=== PATIENT | female | born 1965 | race Caucasian/White ===

== ENCOUNTER 2020-07-08 15:13 | Outpatient (CLI) | payer OTHER, SELFPAY ==
--- NOTE | 2020-07-08 15:21 | MM_ITS ---
WS: [id number] BILATERAL SCREENING DIGITAL MAMMOGRAM WITH CAD HISTORY: SCREENING COMPARISON: 04/07/2019 and 10/11/2015 Bilateral CC and MLO views submitted. Computer aided detection analyzed. Breast composition: There are scattered areas of fibroglandular density. No suspicious masses, microc alcifications or architectural distortion. MM/[place] [id number] IMPRESSION: BI-RADS: 1-Negative FOLLOW UP: 1 Year Follow-up
== END 2020-07-08 15:14 | disposition home or self-care (01) ==
LOC: RADSHAW 15:19
PROVIDERS: PCP Internal Medicine; Visit Provider Obstetrics & Gynecology
DX: Z12.31 Encounter for screening mammogram for malignant neoplasm of breast (principal)
CPT/HCPCS: 77067

== ENCOUNTER 2022-01-19 12:06 | Outpatient (CLI) | payer OTHER, SELFPAY ==
[2022-01-19 13:32] LABS: Calcium 10.7 mg/dL (8.5-10.5)
[2022-01-19 13:56] LABS: Parathyroid Hormone 114.8 pg/mL (15-65)
== END 2022-01-19 12:07 | disposition home or self-care (01) ==
PROVIDERS: PCP Internal Medicine; Visit Provider Internal Medicine
DX: E21.0 Primary hyperparathyroidism (principal); R79.89 Other specified abnormal findings of blood chemistry
CPT/HCPCS: 80048; 82306; 82310; 83970

== ENCOUNTER 2022-02-19 10:08 | Outpatient (CLI) | payer OTHER, SELFPAY ==
--- NOTE | 2022-02-19 10:29 | XR_ITS ---
WS: [id number] Exam: XR ankle LT min 3V* [id number] Date/Time of Exam: 02/19/2022 10:54 AM Reason For Exam: ANKLE JOINT PAIN, LEFT No acute fracture or dislocation. The ankle mortise is intact. Lateral soft tissue swelling. XR/XR ankle LT min 3V* [id number] IMPRESSION: 1. Lateral soft tissue swelling-no acute fracture.
== END 2022-02-19 10:09 | disposition home or self-care (01) ==
PROVIDERS: PCP Internal Medicine; Visit Provider Clinical Nurse Specialist Adult Health
DX: M25.572 Pain in left ankle and joints of left foot (principal)
CPT/HCPCS: 73610

== ENCOUNTER 2022-04-10 15:29 | Outpatient (CLI) | payer OTHER, SELFPAY ==
--- NOTE | 2022-04-10 15:30 | XR_ITS ---
WS: [id number] SCREENING DEXA SCAN [employer] CLINICAL INFORMATION: Check bone density COMPARISON: None. FINDINGS: The L1-L4 bone mineral density measures 0.948 g/cm2. This corresponds to a T score score of -1.9 and Z score of -1.1. Left femoral neck bone mineral density measures 0.832 g/cm2. This corresponds to a T score of -1.4 an d Z score of -0.7. Right femoral neck bone mineral density measures 0.715 g/cm2. This corresponds to a T score -2.3of an d Z score of -1.7. Mean femoral neck bone mineral density measures 0.773 g/cm2. This corresponds to a T score of -1.9 an d Z score of -1.2. XR/XR DEXA axial skeleton* [id number] IMPRESSION: Osteopenia in the femoral necks and lumbar spine. Patient's FRAX calculated 10 year probability for major osteoporotic fracture i s 12.4 % and osteoporotic hip fracture is 2.9%.
[2022-04-10 17:54] LABS: Thyroid Stimulating Hormone 4.29 uIU/mL (0.27-4.20)
[2022-04-10 18:44] LABS: Calcium 10.5 mg/dL (8.5-10.5); Parathyroid Hormone 100.3 pg/mL (15-65)
== END 2022-04-10 15:36 | disposition home or self-care (01) ==
LOC: RAD 15:38 → LAB 15:41 → RAD 15:46
PROVIDERS: PCP Internal Medicine; Visit Provider Internal Medicine
DX: E03.9 Hypothyroidism, unspecified (principal); E21.0 Primary hyperparathyroidism; K59.00 Constipation, unspecified; R79.89 Other specified abnormal findings of blood chemistry; M85.80 Other specified disorders of bone density and structure, unspecified site
CPT/HCPCS: 36415; 77080; 82310; 83970; 84439; 84443

== ENCOUNTER 2022-06-05 11:49 | Outpatient (CLI) | payer OTHER, SELFPAY ==
[2022-06-05 13:09] LABS: Calcium 10.8 mg/dL (8.5-10.5)
[2022-06-05 13:14] LABS: Parathyroid Hormone 110.1 pg/mL (15-65)
[2022-06-05 13:15] LABS: Alanine Aminotransferase 12 U/L (0-33); Albumin Level 4.3 g/dL (3.5-5.2); Alkaline Phosphatase 130 U/L (35-105); Anion Gap 14.2 (5-19); Aspartate Amino Transferase 14 U/L (0-32); Blood Urea Nitrogen 11 mg/dL (6-20); Calcium 10.4 mg/dL (8.5-10.5); Carbon Dioxide 25 mmol/L (22-29); Chloride 104 mmol/L (98-107); Free T4 Free Thyroxine 1.32 ng/dL (0.82-1.77); Globulin 2.8 g/dL (1.3-4.6); Glomerular Filtration Rate 56.7 mL/min (90-130); Glucose 90 mg/dL (65-115); Osmolality Calculated 287 mOsm/kg (285-295); Potassium 4.2 mmol/L (3.5-5.1); Sodium 139 mmol/L (136-145); Thyroid Stimulating Hormone 3.21 uIU/mL (0.27-4.20); Total Bilirubin 0.3 mg/dL (0.15-1.2); Total Protein 7.1 g/dL (6.6-8.7)
[2022-06-05 13:45] LABS: 25 Hydroxy Vitamin D 23 ng/mL (30-100)
== END 2022-06-05 11:50 | disposition home or self-care (01) ==
PROVIDERS: Internal Medicine; PCP Family Medicine; Visit Provider Podiatrist Foot & Ankle Surgery
DX: E21.0 Primary hyperparathyroidism (principal); E03.9 Hypothyroidism, unspecified; R79.89 Other specified abnormal findings of blood chemistry; B35.1 Tinea unguium
CPT/HCPCS: 80053; 82306; 82310; 83970; 84439; 84443

== ENCOUNTER 2022-10-22 14:48 | Observation (INO) | payer OTHER, SELFPAY ==
[2022-10-22 14:58] VITALS: BP 139/76; PULSE 81; RESP 16; TEMP 36.7; O2SAT 99
[2022-10-22 17:20] LABS: Basophils # 0.1 10^3/uL (0.0-0.1); Basophils % 0.7 %; Eosinophils # 0.2 10^3/uL (0.0-0.8); Eosinophils % 2.4 %; Hematocrit 43.7 % (37.0-47.0); Hemoglobin 14.7 g/dL (11.5-15.3); Lymphocytes # 2.5 10^3/uL (0.8-4.8); Lymphocytes % 33.1 %; Mean Corpuscular HGB Conc 33.6 g/dL (30.0-36.0); Mean Corpuscular Hemoglobin 31.1 pg (28.0-34.0); Mean Corpuscular Volume 92.4 fl (81-99); Mean Platelet Volume 11.6 fL (7.4-10.4); Monocytes # 0.6 10^3/uL (0.2-0.9); Monocytes % 8.3 %; Neutrophils # 4.16 10^3/uL (1.8-7.7); Neutrophils % 55.4 %; Nucleated Red Blood Cells % 0 %; Platelet Count 262 10^3/cmm (130-400); Red Blood Count 4.73 10^6/uL (4.1-5.3); Red Cell Distribution Width 11.6 % (12.1-15.1); White Blood Count 7.5 10^3/uL (4.0-10.0)
[2022-10-22 17:42] LABS: Alanine Aminotransferase 11 U/L (0-33); Albumin Level 4.8 g/dL (3.5-5.2); Alkaline Phosphatase 131 U/L (35-105); Anion Gap 14.8 (5-19); Aspartate Amino Transferase 14 U/L (0-32); Blood Urea Nitrogen 20 mg/dL (6-20); Calcium 11.7 mg/dL (8.5-10.5); Carbon Dioxide 27 mmol/L (22-29); Chloride 102 mmol/L (98-107); Globulin 2.7 g/dL (1.3-4.6); Glomerular Filtration Rate 73.4 mL/min (90-130); Glucose 95 mg/dL (65-115); Osmolality Calculated 290 mOsm/kg (285-295); Potassium 4.8 mmol/L (3.5-5.1); Sodium 139 mmol/L (136-145); Total Bilirubin 0.4 mg/dL (0.15-1.2); Total Protein 7.5 g/dL (6.6-8.7)
--- NOTE | 2022-10-22 19:12 | W.ED.WEAKNES ---
HPI - Weakness General: Chief complaint: Weakness Stated complaint: possible syncope Time Seen by Provider: 10/22/22 17:24 History of Present Illness: Ms. Resendez is a 57-year-old lady with history of thyroid disorder presenting to the emergency department for abnormal neurologic events. She describes approximately 1 month of very rare intermittent short-lived episodes where she feels sudden onset of generalized weakness and unsteadiness. These do not correlate with any particular event, time of day, things that she can think of. Over the past few days she has had multiple episodes that have lasted longer. She describes being aware but unable to see and move. Intensity symptoms when present is moderate to severe. Currently feels mild fatigue and malaise which is common after her events. No other specific changes in health, exacerbating, or alleviating factors identified. Onset (ago): week(s) Duration: intermittent Migration: none Severity: severe Quality: other Relieving factors: none Exacerbating factors: none Review of Systems General: Reports: 10 or more systems reviewed and unremarkable except in HPI and below PFSH ED PFSH: Medical History History of ganglion cyst Hypothyroid Right-sided lacunar infarction Surgical History H/O: hysterectomy History of carpal tunnel surgery History of laparoscopic cholecystectomy Family History Grandfather Heart disease maternal Father Hypercholesteremia Mother Hypertension Social History Smoking and tobacco status: never smoked Alcohol intake: never History of recent travel: No Physical Exam Const: COMMON NORMALS: patient oriented x3 and alert GENERAL APPEARANCE: cooperative and well developed HENMT: COMMON NORMALS: normocephalic and atraumatic HEAD & SCALP: normocephalic and atraumatic THROAT: posterior oropharynx normal Eye: COMMON NORMALS: conjunctivae normal CONJUNCTIVA: Yes conjunctivae normal SCLERA: sclerae normal Neck/C-Spine: COMMON NORMALS: supple GENERAL: Yes trachea midline Resp: COMMON NORMALS: clear to auscultation bilaterally EFFORT & INSPECTION: Yes able to speak in complete sentences AUSCULTATION: clear to auscultation bilaterally Cardio: COMMON NORMALS: regular rate and regular rhythm RATE: regular rate RHYTHM: regular rhythm GI: COMMON NORMALS: Soft to palpation PALPATION: Yes Soft to palpation and No Tenderness to palpation present (GI) Extremity: GENERAL: Yes normal exam except as noted and No edema Neuro: COMMON NORMALS: patient oriented x3, CN's II-XII intact bilaterally, moves all extremities, no focal motor deficits, no sensory deficits noted and gait normal SENSORIUM/ORIENTATION: Yes alert and No Orientation impaired Psych: COMMON NORMALS: mental status grossly normal and Normal thought process present THOUGHT PROCESS: Normal thought process present Course Vital Signs: Vital signs: Vital Signs Temperature 98.3 F 10/23/22 11:52 Pulse Rate 75 10/23/22 11:52 Respiratory Rate 18 10/23/22 11:52 Blood Pressure 120/76 10/23/22 11:52 Pulse Oximetry 98 10/23/22 11:52 Oxygen Delivery Me thod 10/23/22 00:57 MDM - Weakness Medical Decision Making 57-year-old lady presenting with abnormal neurologic episodes that have been increasing in frequency. No focal neurologic deficits appreciated on clinical exam. EKG demonstrates sinus rhythm with left axis deviation, normal intervals, no STEMI. Similar on repeat. No significant hematologic or metabolic abnormalities to explain symptoms. Negative range 2-hour delta troponin. No convincing evidence of UTI in the absence of symptoms. Chest x-ray with no lobar consolidation or pneumothorax. Head CT negative for acute intracranial hemorrhage or mass, old CVA present which patient was not aware of. The patient did have another episode however upon my observation patient does have completed. There is no shaking/seizure characteristic. Etiology is unclear. Most likely etiology of patient symptoms is unclear transient neurologic episodes concerning for syncope versus TIA. The results of ED evaluation were discussed with the patient including plan for admission due to requirement for level of care not available if discharged to prevent significant worsening/deterioration. Patient agreeable with plan. Discussed with hospitalist service who was agreeable to admit patient. Medical Records I reviewed the patient's medical records. Lab Data I reviewed the patient's lab results. 10/22/22 17:02 10/22/22 17:02 Radiology Impressions Chest X-Ray 10/22/22 19:20 IMPRESSION: No acute findings. Head CT 10/22/22 19:20 IMPRESSION: 1. Negative for intracranial hemorrhage or mass effect. 2. Right external capsule chronic lacunar infarct. Laboratory Results WBC 7.5 10^3/uL (4.0-10.0) 10/22/22 17:02 RBC 4.73 10^6/uL (4.1-5.3) 10/22/22 17:02 Hgb 14.7 g/dL (11.5-15.3) 10/22/22 17:02 Hct 43.7 % (37.0-47.0) 10/22/22 17:02 MCV 92.4 fl (81-99) 10/22/22 17:02 MCH 31.1 pg (28.0-34.0) 10/22/22 17:02 MCHC 33.6 g/dL (30.0-36.0) 10/22/22 17:02 RDW 11.6 % (12.1-15.1) L 10/22/22 17:02 Plt Count 262 10^3/cmm (130-400) 10/22/22 17:02 MPV 11.6 fL (7.4-10.4) H 10/22/22 17:02 Neut % (Auto) 55.4 % 10/22/22 17:02 Lymph % (Auto) 33.1 % 10/22/22 17:02 [place] % (Auto) 8.3 % 10/22/22 17:02 Eos % (Auto) 2.4 % 10/22/22 17:02 Baso % (Auto) 0.7 % 10/22/22 17:02 Neut # (Auto) 4.16 10^3/uL (1.8-7.7) 10/22/22 17:02 Lymph # (Auto) 2.5 10^3/uL (0.8-4.8) 10/22/22 17:02 [place] # (Auto) 0.6 10^3/uL (0.2-0.9) 10/22/22 17:02 Eos # (Auto) 0.2 10^3/uL (0.0-0.8) 10/22/22 17:02 Baso # (Auto) 0.1 10^3/uL (0.0-0.1) 10/22/22 17:02 Nucleated RBC % (auto) 0 % 10/22/22 17:02 Nucleated RBCs # 0.0 /100WBC 10/22/22 17:02 Sodium 139 mmol/L (136-145) 10/22/22 17:02 Potassium 4.8 mmol/L (3.5-5.1) 10/22/22 17:02 Chloride 102 mmol/L (98-107) 10/22/22 17:02 Carbon Dioxide 27 mmol/L (22-29) 10/22/22 17:02 Anion Gap 14.8 (5-19) 10/22/22 17:02 BUN 20 mg/dL (6-20) 10/22/22 17:02 Creatinine 0.8 mg/dL (0.5-0.9) 10/22/22 17:02 GFR Calculation 73.4 mL/min (90-130) L 10/22/22 17:02 Glucose 95 mg/dL (65-115) 10/22/22 17:02 Calculated Osmolality 290 mOsm/kg (285-295) 10/22/22 17:02 Calcium 11.7 mg/dL (8.5-10.5) H 10/22/22 17:02 Total Bilirubin 0.4 mg/dL (0.15-1.2) 10/22/22 17:02 AST 14 U/L (0-32) 10/22/22 17:02 ALT 11 U/L (0-33) 10/22/22 17:02 Alkaline Phosphatase 131 U/L (35-105) H 10/22/22 17:02 Troponin T Baseline 6 ng/L (0-10) 10/22/22 17:06 Troponin T 120 Minute 6.00 ng/L (0-10) 10/22/22 21:07 Delta Troponin T 0 ABS# (0-10) 10/22/22 21:07 Total Protein 7.5 g/dL (6.6-8.7) 10/22/22 17:02 Albumin 4.8 g/dL (3.5-5.2) 10/22/22 17:02 Globulin 2.7 g/dL (1.3-4.6) 10/22/22 17:02 TSH 5.31 uIU/mL (0.27-4.20) H 10/22/22 17:06 Free T4 1.25 ng/dL (0.82-1.77) 10/22/22 17:06 Urine Color Yellow (Yellow) 10/22/22 20:00 Urine Appearance Clear (CLEAR) 10/22/22 20:00 Urine pH 7 (5-7) 10/22/22 20:00 Ur Specific [place] 1.015 (1.005-1.030) 10/22/22 20:00 Urine Protein Neg (Negative) 10/22/22 20:00 Urine Glucose (UA) Norm (Normal) 10/22/22 20:00 Urine Ketones Negative (Negative) 10/22/22 20:00 Urine Blood Neg (Negative) 10/22/22 20:00 Urine Nitrate Negative (Negative) 10/22/22 20:00 Urine Bilirubin Neg (Negative) 10/22/22 20:00 Urine Urobilinogen Norm mg/dL (Negative) 10/22/22 20:00 Ur Leukocyte Esterase Trace (Negative) H 10/22/22 20:00 Urine RBC 0-4 /hpf (0-2) H 10/22/22 20:00 Urine WBC 5-10 /hpf (0-5) H 10/22/22 20:00 Ur Squamous Epith Cells 0-4 /hpf (0-5) H 10/22/22 20:00 Amorphous Sediment Not Reportable 10/22/22 20:00 Urine Bacteria Trace /hpf (NONE) 10/22/22 20:00 Discharge Plan Discharge Patient Disposition: Placed in Observation Admit Provider: Lynda Mancera Clinical Impression: Transient neurological symptoms, Syncope Discharge Diet: Regular Discharge Activity: Resume usual activity and Increase activity as tolerated Coding Level of Care Code ED Nonprofit Financial Controller for Chg Orlin
--- NOTE | 2022-10-22 19:20 | XRR_ITS ---
PROCEDURE INFORMATION: Exam: XR Chest Exam date and time: 10/22/2022 7:43 PM Age: 57 years old Clinical indication: Other: Leg weakness, feeling of syncope often; Additional info: Transient neurologic episodes, TECHNIQUE: Imaging protocol: Radiologic exam of the chest. Views: 1 view. COMPARISON: CT neck w con* [id number] 11/04/2015 3:03 PM FINDINGS: Lungs: Unremarkable. No consolidation. Pleural spaces: Unremarkable. No pleural effusion. No pneumothorax. Heart/Mediastinum: Unremarkable. No cardiomegaly. Bones/joints: Unremarkable. XR/XR chest 1V portable [id number] IMPRESSION: No acute findings.
--- NOTE | 2022-10-22 19:20 | ECG_ITS ---
[facility] Test Date: 2022-10-22 Pat Name: Violet Resendez Department: Room: Gender: Female Grape Cutter: : 1965 Requested By: Edward Franco Order Number: [id number] Yolanda MD: Nena Chadwick M.D. Measurements Intervals [place] Rate: 71 P: -21 NE: 167 QRS: -17 QRSD: 86 T: 27 QT: 379 QTc: 414 Interpretive Statements SINUS RHYTHM LOW QRS VOLTAGE IN PRECORDIAL LEADS [QRS DEFLECTION < 1.0 mV IN CHEST LEADS] POSSIBLE ANTERIOR MYOCARDIAL INFARCTION , PROBABLY OLD [30 ms Q WAVE IN V3/V4, OR R < 0.2 mV IN V4] INFERIOR MYOCARDIAL INFARCTION , PROBABLY OLD [40+ ms Q WAVE AND/OR ST/T ABNORMALITY IN II/aVF] No previous ECG available for comparison Electronically Signed On 10-23-2022 7:54:17 SORTER UPHOLSTERY PARTS by Nena Chadwick M.D. [id number]
--- NOTE | 2022-10-22 19:20 | CTR_ITS ---
PROCEDURE INFORMATION: Exam: CT Head Without Contrast Exam date and time: 10/22/2022 8:06 PM Age: 57 years old Clinical indication: Altered mental status/memory loss; Patient HX: Patient states she has been having transient short lived episodes where she cannot speak or move and then feels very weak afterwards. ; Additional info: Transient neurological events TECHNIQUE: Imaging protocol: Computed tomography of the head without contrast. Radiation optimization: All CT scans at this facility use at least one of these dose optimization techniques: automated exposure control; mA and/or kV adjustment per patient size (includes targeted exams where dose is matched to clinical indication); or iterative reconstruction. Other protocol: This patient has received 0 known CTs and 0 known cardiac nuclear medicine studies in the 12 months prior to the current study. COMPARISON: CT neck w con* [id number] 11/04/2015 3:03 PM RADIATION DOSE METRICS: Total DLP (mGy-cm): 1050.38 FINDINGS: Brain: Right external capsule chronic lacunar infarct. Cerebral ventricles: No ventriculomegaly. Paranasal sinuses: Visualized sinuses are unremarkable. No fluid levels. Mastoid air cells: Visualized mastoid air cells are well aerated. Bones/joints: Unremarkable. No acute fracture. Soft tissues: Unremarkable. CT/CT head wo con* [id number] IMPRESSION: 1. Negative for intracranial hemorrhage or mass effect. 2. Right external capsule chronic lacunar infarct.
[2022-10-22 19:45] LABS: Troponin(5th) Baseline 6 ng/L (0-10)
[2022-10-22 19:54] LABS: Thyroid Stimulating Hormone 5.31 uIU/mL (0.27-4.20)
[2022-10-22 20:02] VITALS: BP 128/77; BP 133/64; BP 133/77; PULSE 74; PULSE 84; PULSE 85
[2022-10-22 20:46] LABS: Free T4 Free Thyroxine 1.25 ng/dL (0.82-1.77)
[2022-10-22] MEDS: sodium chloride 0.9% 1,000 ML 999 ML IV (20:48)
[2022-10-22 20:55] LABS: Add Urine Culture? No; Add Urine Microscopic? YES; Bacteria Urine TRACE /hpf; Bilirubin Urine Neg (Negative); Blood Urine Neg (Negative); Glucose Urine UA Norm (Normal); Ketones Urine Negative (Negative); Leukocyte Esterase Urine Trace (Negative); Nitrate Urine Negative (Negative); Protein Urine Neg (Negative); RBC Urine 0-4 /hpf (0-2); Specific Gravity, Urine 1.015 (1.005-1.030); Squamous Epithelial Cell Urine 0-4 /hpf (0-5); Urine Appearance Clear (CLEAR); Urine Color Yellow (Yellow); Urobilinogen Urine Norm (Negative); pH Urine 7 (5-7)
--- NOTE | 2022-10-22 21:25 | ECG_ITS ---
[facility] Test Date: 2022-10-22 Pat Name: Violet Resendez Department: Room: Gender: Female Process Development Engineer: : 1965 Requested By: Edward Franco Order Number: [id number] Guerrero MD: Nena Chadwick M.D. Measurements Intervals [place] Rate: 73 P: 32 [place]: 180 QRS: 4 QRSD: 80 T: 36 QT: 389 QTc: 431 Interpretive Statements SINUS RHYTHM WITH OCCASIONAL VENTRICULAR PREMATURE COMPLEXES LOW QRS VOLTAGE IN PRECORDIAL LEADS [QRS DEFLECTION < 1.0 mV IN CHEST LEADS] Compared to ECG 10/22/2022 19:36:17 Ventricular premature complex(es) now present Myocardial infarct finding no longer present Electronically Signed On 10-23-2022 8:12:27 SCANNER SUPERVISOR by Nena Chadwick M.D. [id number]
[2022-10-22 21:41] LABS: Troponin 5 2HR Delta 0 ABS# (0-10)
[2022-10-22 22:22] VITALS: BP 126/78; PULSE 72; RESP 18; O2SAT 99
[2022-10-23 01:04] LABS: Troponin 5 6HR Delta 0 ng/L (0-12)
--- NOTE | 2022-10-23 01:20 | ECG_ITS ---
[facility] Test Date: 2022-10-23 Pat Name: Violet Resendez Department: Room: 279 Gender: Female Clerical Manager: : 1965 Requested By: Edward Franco Order Number: [id number] Yolanda MD: Blair Craven M.D. Measurements Intervals [place] Rate: 72 P: -13 VT: 179 QRS: 11 QRSD: 84 T: 44 QT: 379 QTc: 416 Interpretive Statements SINUS RHYTHM LOW QRS VOLTAGE IN PRECORDIAL LEADS [QRS DEFLECTION < 1.0 mV IN CHEST LEADS] Compared to ECG 10/22/2022 21:25:06 Ventricular premature complex(es) no longer present Electronically Signed On 10-23-2022 16:21:45 RADIOGRAPHIC TECHNOLOGIST by Blair Craven M.D. [id number]
--- NOTE | 2022-10-23 03:51 | P.HP_ITS ---
Providers/Chief Complaint Admitting Physician: Lynda Mancera MD Primary Care Provider: Nabil Goldstein MD Chief Complaint: possible syncope History of Present Illness Violet Resendez is a 57 year old female with a past medical history of hypothyroidism, hyperparathyroidism for which she follows with endocrinology as outpatient. She presents to the emergency room today with 1 month episodes of absence . She thinks she is having seizures. Describes these episodes to be suddenly going blank. Patient states that she is aware of her surroundings, able to hear conversations, able to comprehend what other people are talking about but unable to answer appropriately. She is aware of people touching her but cannot respond appropriately. Has not lost consciousness during these e pisodes. no history of head trauma prior to onset of the symptoms. No recent medications that have been added to her regimen. No past history of seizures. No fever or chills. Over the past 2 days these episodes have become more frequent, happening 2-3 times a day which concerned her to bring her to the emergency room. She has had no focal motor deficits with any of these episodes. Denies any recent stressors in life. Review of Systems General: Reports: 10 or more systems reviewed and unremarkable except in HPI and below Const: Denies: fever(s), chills or body aches Eyes: Denies: change in vision, blurry vision or photophobia ENMT: Reports: hoarseness; Denies: throat pain, enlarged tonsils, odynophagia or nasal congestion Card: Denies: chest pain, palpitations, irregular heart rhythm, edema, swelling of feet/ankles, lightheadedness, pre-syncope, dyspnea on exertion or orthopnea Resp: Denies: dyspnea, productive cough, non-productive cough, wheezing, stridor, pain on inspiration, change in phlegm color, hemoptysis or chest congestion GI: Denies: abdominal pain, nausea, vomiting, hematemesis, coffee ground emesis, dysphagia, heartburn, diarrhea, constipation, GI cramping, change in stool character, hematochezia or melena : Denies: flank pain, difficulty voiding, dysuria, urinary frequency, urinary urgency, urinary hesitancy or hematuria Musc: Denies: neck pain, back pain, extremity pain, joint swelling, joint warmth or deformity Neuro: Denies: headache(s), numbness in extremities, weakness in extremities, sensory changes, difficulty walking, frequent falls, dizziness, vertigo, behavioral changes, Slurred speech present or seizure-like activity Psych: Denies: anxiety, depression, suicidal ideation or homicidal ideation Endo: Denies: polyuria, polydipsia, tired all the time, cold intolerance or hot flashes Randal/Lymph: Denies: easy bruising or easy bleeding Medications/Allergies Home Medications Medication Instructions Recorded Confirmed Last Taken Type lansoprazole 15 mg capsule,delayed 15 mg PO DAILY 01/19/22 06/09/22 Unknown History release sucralfate 1 gram tablet 1 g PO BID PRN 01/19/22 06/09/22 Unknown History venlafaxine 37.5 mg 37.5 mg PO DAILY 01/19/22 06/09/22 Unknown History capsule,extended release 24 hr levothyroxine 25 mcg tablet 25 mcg PO DAILY #90 tabs 01/20/22 06/09/22 Unknown Rx terbinafine HCl 250 mg tablet 250 mg PO DAILY 30 days #30 tabs 04/28/22 06/09/22 Unknown Rx ropinirole 2 mg tablet See Rx Instructions .Route 09/24/22 Unknown Rx .COMPLEX #180 tabs cholecalciferol (vitamin D3) 50 See Rx Instructions .Route 10/05/22 Unknown Rx mcg (2,000 unit) capsule .COMPLEX #100 caps Allergies Allergy/AdvReac Type Severity Reaction Status Date / Time Sulfa (Sulfonamide Allergy anaphylaxis Verified 06/09/22 14:47 Antibiotics) PFSH Acute PFSH: Medical History History of ganglion cyst Surgical History H/O: hysterectomy History of carpal tunnel surgery History of laparoscopic cholecystectomy Family History Grandfather Heart disease maternal Father Hypercholesteremia Mother Hypertension Social History Smoking and tobacco status: never smoked Alcohol intake: never History of recent travel: No Vitals/I&O/Wt Last Vital Signs Temp 98.0 F 10/22/22 14:58 Pulse 72 10/22/22 22:22 Resp 18 10/22/22 22:22 BP 126/78 10/22/22 22:22 Pulse Ox 99 10/22/22 22:22 O2 Del Method 10/23/22 00:57 10/22/22 10/22/22 10/23/22 14:59 22:59 06:59 Intake Total 1000 / 1000 Balance 1000 / 1000 Weight last 48 hrs Weight 72.575 kg Physical Exam Narrative: General: No acute distress, AO x3 HEENT: PERRLA, pupils bilaterally equal and reactive, pallors not present Chest: Normal vesicular breath sounds, no added sounds, equal good air entry bilaterally CVS: S1-S2 regular, no murmurs, no tachycardia, no gallops, no rubs Abdomen: Soft, nontender, no organomegaly, bowel sounds present Neuro: No focal deficits, no facial deformity, AO x3, power 5/5 in all limbs Data 10/22/22 17:02 10/22/22 17:02 Other Labs: Radiology Impressions Chest X-Ray 10/22/22 19:20 IMPRESSION: No acute findings. Head CT 10/22/22 19:20 IMPRESSION: 1. Negative for intracranial hemorrhage or mass effect. 2. Right external capsule chronic lacunar infarct. Laboratory Results WBC 7.5 10^3/uL (4.0-10.0) 10/22/22 17:02 RBC 4.73 10^6/uL (4.1-5.3) 10/22/22 17:02 Hgb 14.7 g/dL (11.5-15.3) 10/22/22 17:02 Hct 43.7 % (37.0-47.0) 10/22/22 17:02 MCV 92.4 fl (81-99) 10/22/22 17:02 MCH 31.1 pg (28.0-34.0) 10/22/22 17:02 MCHC 33.6 g/dL (30.0-36.0) 10/22/22 17:02 RDW 11.6 % (12.1-15.1) L 10/22/22 17:02 Plt Count 262 10^3/cmm (130-400) 10/22/22 17:02 MPV 11.6 fL (7.4-10.4) H 10/22/22 17:02 Neut % (Auto) 55.4 % 10/22/22 17:02 Lymph % (Auto) 33.1 % 10/22/22 17:02 [place] % (Auto) 8.3 % 10/22/22 17:02 Eos % (Auto) 2.4 % 10/22/22 17:02 Baso % (Auto) 0.7 % 10/22/22 17:02 Neut # (Auto) 4.16 10^3/uL (1.8-7.7) 10/22/22 17:02 Lymph # (Auto) 2.5 10^3/uL (0.8-4.8) 10/22/22 17:02 [place] # (Auto) 0.6 10^3/uL (0.2-0.9) 10/22/22 17:02 Eos # (Auto) 0.2 10^3/uL (0.0-0.8) 10/22/22 17:02 Baso # (Auto) 0.1 10^3/uL (0.0-0.1) 10/22/22 17:02 Nucleated RBC % (auto) 0 % 10/22/22 17:02 Nucleated RBCs # 0.0 /100WBC 10/22/22 17:02 Sodium 139 mmol/L (136-145) 10/22/22 17:02 Potassium 4.8 mmol/L (3.5-5.1) 10/22/22 17:02 Chloride 102 mmol/L (98-107) 10/22/22 17:02 Carbon Dioxide 27 mmol/L (22-29) 10/22/22 17:02 Anion Gap 14.8 (5-19) 10/22/22 17:02 BUN 20 mg/dL (6-20) 10/22/22 17:02 Creatinine 0.8 mg/dL (0.5-0.9) 10/22/22 17:02 GFR Calculation 73.4 mL/min (90-130) L 10/22/22 17:02 Glucose 95 mg/dL (65-115) 10/22/22 17:02 Calculated Osmolality 290 mOsm/kg (285-295) 10/22/22 17:02 Calcium 11.7 mg/dL (8.5-10.5) H 10/22/22 17:02 Total Bilirubin 0.4 mg/dL (0.15-1.2) 10/22/22 17:02 AST 14 U/L (0-32) 10/22/22 17:02 ALT 11 U/L (0-33) 10/22/22 17:02 Alkaline Phosphatase 131 U/L (35-105) H 10/22/22 17:02 Troponin T Baseline 6 ng/L (0-10) 10/22/22 17:06 Troponin T 120 Minute 6.00 ng/L (0-10) 10/22/22 21:07 Delta Troponin T 0 ABS# (0-10) 10/22/22 21:07 Troponin T Hi Sens 6Hr 6.00 ng/L (0-10) 10/23/22 00:30 Troponin T Hi Sens 6Hr Delta 0 ng/L (0-12) 10/23/22 00:30 Total Protein 7.5 g/dL (6.6-8.7) 10/22/22 17:02 Albumin 4.8 g/dL (3.5-5.2) 10/22/22 17:02 Globulin 2.7 g/dL (1.3-4.6) 10/22/22 17:02 TSH 5.31 uIU/mL (0.27-4.20) H 10/22/22 17:06 Free T4 1.25 ng/dL (0.82-1.77) 10/22/22 17:06 Urine Color Yellow (Yellow) 10/22/22 20:00 Urine Appearance Clear (CLEAR) 10/22/22 20:00 Urine pH 7 (5-7) 10/22/22 20:00 Ur Specific [place] 1.015 (1.005-1.030) 10/22/22 20:00 Urine Protein Neg (Negative) 10/22/22 20:00 Urine Glucose (UA) Norm (Normal) 10/22/22 20:00 Urine Ketones Negative (Negative) 10/22/22 20:00 Urine Blood Neg (Negative) 10/22/22 20:00 Urine Nitrate Negative (Negative) 10/22/22 20:00 Urine Bilirubin Neg (Negative) 10/22/22 20:00 Urine Urobilinogen Norm mg/dL (Negative) 10/22/22 20:00 Ur Leukocyte Esterase Trace (Negative) H 10/22/22 20:00 Urine RBC 0-4 /hpf (0-2) H 10/22/22 20:00 Urine WBC 5-10 /hpf (0-5) H 10/22/22 20:00 Ur Squamous Epith Cells 0-4 /hpf (0-5) H 10/22/22 20:00 Amorphous Sediment Not Reportable 10/22/22 20:00 Urine Bacteria Trace /hpf (NONE) 10/22/22 20:00 A&P Assessment and plan (1) Transient neurological symptoms: Patient presents today with increasing frequency of episodes of absence over the past month, more frequent over the past 2 to 3 days. Overall unclear etiology of symptoms at this present time. CT of the head shows right chronic lacunar infarct, though do not feel this would necessarily explain her symptoms. Denies any headache or aura at this time, unlikely to be migraine episodes. Unlikely that patient has new onset absence seizures for the first time at age 57. Ideally diagnosis of absence seizure would require continuous EEG monitoring including at the time of this episode, however this is not currently available at the facility. We will proceed with a spot EEG today if neurology is available, however normal EEG outside of the episode would not necessarily exclude the seizure episode. Electrolytes grossly normal except for mild hypercalcemia which is related to k nown hyperparathyroidism. Started on normal saline for this, however mild elevation in calcium is unlikely to explain her current neurological symptoms. no other concerning symptoms for meningitis Check orthostatics Telemetry monitoring in case related to underlying arrhythmias carotid duplex given presence of lacunar infarct on CT, unknown chronicnity, patient denies past h/o known strokes. Attestations Medical Necessity Statement*: less than 2 midnight stay anticipated for above care Coding Level of Care Code Acute Code for Chg Fwd Moderate MDM includes number and complexity of problems actively addressed during encounter as documented Diagnoses Transient neurological symptoms R29.818
[2022-10-23 04:00] VITALS: BP 99/66; PULSE 73; RESP 17; TEMP 36.4; O2SAT 97
[2022-10-23] MEDS: sodium chloride 0.9% 1,000 ML 75 ML IV (05:09)
--- NOTE | 2022-10-23 06:28 | USCV_ITS ---
Violet Resendez Age: 57 Gender: F : 1965 Exam Date: 10/23/2022 08:30 Ordering Phys: Lynda Mancera MD Technologist: SAGAR Exam Location: [facility] – [place] Indication: cva Risk Factors: Previous Vascular Surgery: Right Brachial BP: / Left Brachial BP: / Right Left Velocity (cm/s) Spectral Plaque Velocity (cm/s) Spectral Plaque Syst/Diast Broadening Syst/Diast Broadening 113.60/17.60 Prox CCA 119.60/ 19.70 118.00/19.80 Mid CCA 94.70 / 23.70 88.20/ 18.70 Distal CCA 80.20 / 22.30 90.40/ 30.90 Prox ICA 86.80 / 27.60 91.50/ 33.10 Mid ICA 76.20 / 31.60 98.10/ 33.10 Distal ICA 88.10 / 35.50 104.70 ECA 131.50 0.83 ICA/CCA 0.74 Antegrade Vertebral Antegrade 44.00/ 9.90 cm/s 51.30/ 18.60 cm/s Tri Subclavian Tri CONCLUSIONS Right ICA stenosis <50%. Left ICA stenosis <50%. Normal antegrade Doppler flow noted in the right vertebral artery. Normal antegrade Doppler flow noted in the left vertebral artery. Hipolito Jarrell MD (Electronically Signed) Final Date: 23 October 2022 12:33 S
--- NOTE | 2022-10-23 07:23 | PC.NURSE ---
Bedside report give by Estephania ALFARO. Patient appears to be asleep in bed at this time.
[2022-10-23 07:26] LABS: Ionized Calcium 1.4 mmol/L (1.1-1.4)
[2022-10-23] MEDS: venlafaxine ER (24HR) 37.5 mg Capsule PO (09:39)
[2022-10-23] MEDS: levothyroxine 25 mcg Tablet PO (09:39)
--- NOTE | 2022-10-23 10:34 | PM.DCS ---
Discharge Providers Date of Admission: 10/22/22 22:28 Date of Discharge: October 23, 2022 Attending Provider at Admission: Lynda Mancera MD Attending Provider at Discharge: Adal Mcknight MD Primary Care Provider: Nabil Goldstein MD Diagnoses at Discharge Discharge Diagnosis (1) Transient neurological symptoms: Status: Acute Reason for Visit Reason for Visit: possible syncope Hospital Course Hospital Course Violet Resendez is a 57 year old female with a past medical history of hypothyroidism, hyperparathyroidism for which she follows with endocrinology as outpatient.? She presents to the emergency room today with 1 month episodes of absence .? She thinks she is having seizures.? Describes these episodes to be suddenly going blank.? Patient states that she is aware of her surroundings, able to hear conversations, able to comprehend what other people are talking about but unable to answer appropriately. She is aware of people touching her but cannot respond appropriately. Has not lost consciousness during these episodes. no history of head trauma prior to onset of the symptoms.? No recent medications that have been added to her regimen.? No past history of seizures.? No fever or chills.? Over the past 2 days these episodes have become more frequent, happening 2-3 times a day which concerned her to bring her to the emergency room.? She has had no focal motor deficits with any of these episodes.? Denies any recent stressors in life. Denies any recent changes in medications. Patient was admitted to hospital for further evaluation and management. Patient did not have any DVT events during hospitalization. All of the blood looked normal. CT head was done which ruled out any acute abnormality. It was discussed in detail with the patient that her symptomatology is less likely to be of a seizure and more likely of possible narcolepsy versus conversion disorder. It was also discussed that patient will most likely need a continuous video EEG for few days because it is prudent for her to have a EEG while she has an event which no one knows pain can happen again and most of the life-threatening conditions have been ruled out. She is to follow-up with neurology specialist in [place] and will need referral from a primary care provider. She has an appointment with a primary care provider early next week. Physical Exam Narrative: General: No acute distress, AO x3 HEENT: PERRLA, pupils bilaterally equal and reactive, pallors not present Chest: Normal vesicular breath sounds, no added sounds, equal good air entry bilaterally CVS: S1-S2 regular, no murmurs, no tachycardia, no gallops, no rubs Abdomen: Soft, nontender, no organomegaly, bowel sounds present Neuro: No focal deficits, no facial deformity, AO x3, power 5/5 in all limbs Discharge Data Studies Completed and Pending Completed Studies During Hospitalization Category Date Time Status CT head wo con* [id number] Stat Cat Scan 10/22/22 19:20 Completed XR chest 1V portable [id number] Stat Exams 10/22/22 19:20 Completed Pending at discharge Category Date Time Status EEG electroencephalogram Routine Exams 10/23/22 06:28 Ordered Comprehensive Metabolic Panel AM LABS Lab 10/24/22 04:00 Ordered CV carotid duplex BI* [id number] Routine Ultrasound 10/23/22 06:28 Taken Radiology Impressions Chest X-Ray 10/22/22 19:20 IMPRESSION: No acute findings. Head CT 10/22/22 19:20 IMPRESSION: 1. Negative for intracranial hemorrhage or mass effect. 2. Right external capsule chronic lacunar infarct. Laboratory Results WBC 7.5 10^3/uL (4.0-10.0) 10/22/22 17:02 RBC 4.73 10^6/uL (4.1-5.3) 10/22/22 17:02 Hgb 14.7 g/dL (11.5-15.3) 10/22/22 17:02 Hct 43.7 % (37.0-47.0) 10/22/22 17:02 MCV 92.4 fl (81-99) 10/22/22 17:02 MCH 31.1 pg (28.0-34.0) 10/22/22 17:02 MCHC 33.6 g/dL (30.0-36.0) 10/22/22 17:02 RDW 11.6 % (12.1-15.1) L 10/22/22 17:02 Plt Count 262 10^3/cmm (130-400) 10/22/22 17:02 MPV 11.6 fL (7.4-10.4) H 10/22/22 17:02 Neut % (Auto) 55.4 % 10/22/22 17:02 Lymph % (Auto) 33.1 % 10/22/22 17:02 [place] % (Auto) 8.3 % 10/22/22 17:02 Eos % (Auto) 2.4 % 10/22/22 17:02 Baso % (Auto) 0.7 % 10/22/22 17:02 Neut # (Auto) 4.16 10^3/uL (1.8-7.7) 10/22/22 17:02 Lymph # (Auto) 2.5 10^3/uL (0.8-4.8) 10/22/22 17:02 [place] # (Auto) 0.6 10^3/uL (0.2-0.9) 10/22/22 17:02 Eos # (Auto) 0.2 10^3/uL (0.0-0.8) 10/22/22 17:02 Baso # (Auto) 0.1 10^3/uL (0.0-0.1) 10/22/22 17:02 Nucleated RBC % (auto) 0 % 10/22/22 17:02 Nucleated RBCs # 0.0 /100WBC 10/22/22 17:02 Sodium 139 mmol/L (136-145) 10/22/22 17:02 Potassium 4.8 mmol/L (3.5-5.1) 10/22/22 17:02 Chloride 102 mmol/L (98-107) 10/22/22 17:02 Carbon Dioxide 27 mmol/L (22-29) 10/22/22 17:02 Anion Gap 14.8 (5-19) 10/22/22 17:02 BUN 20 mg/dL (6-20) 10/22/22 17:02 Creatinine 0.8 mg/dL (0.5-0.9) 10/22/22 17:02 GFR Calculation 73.4 mL/min (90-130) L 10/22/22 17:02 Glucose 95 mg/dL (65-115) 10/22/22 17:02 Calculated Osmolality 290 mOsm/kg (285-295) 10/22/22 17:02 Calcium 11.7 mg/dL (8.5-10.5) H 10/22/22 17:02 Ionized Calcium Debbie 1.4 mmol/L (1.1-1.4) 10/23/22 07:00 Total Bilirubin 0.4 mg/dL (0.15-1.2) 10/22/22 17:02 AST 14 U/L (0-32) 10/22/22 17:02 ALT 11 U/L (0-33) 10/22/22 17:02 Alkaline Phosphatase 131 U/L (35-105) H 10/22/22 17:02 Troponin T Baseline 6 ng/L (0-10) 10/22/22 17:06 Troponin T 120 Minute 6.00 ng/L (0-10) 10/22/22 21:07 Delta Troponin T 0 ABS# (0-10) 10/22/22 21:07 Troponin T Hi Sens 6Hr 6.00 ng/L (0-10) 10/23/22 00:30 Troponin T Hi Sens 6Hr Delta 0 ng/L (0-12) 10/23/22 00:30 Total Protein 7.5 g/dL (6.6-8.7) 10/22/22 17:02 Albumin 4.8 g/dL (3.5-5.2) 10/22/22 17:02 Globulin 2.7 g/dL (1.3-4.6) 10/22/22 17:02 TSH 5.31 uIU/mL (0.27-4.20) H 10/22/22 17:06 Free T4 1.25 ng/dL (0.82-1.77) 10/22/22 17:06 Urine Color Yellow (Yellow) 10/22/22 20:00 Urine Appearance Clear (CLEAR) 10/22/22 20:00 Urine pH 7 (5-7) 10/22/22 20:00 Ur Specific [place] 1.015 (1.005-1.030) 10/22/22 20:00 Urine Protein Neg (Negative) 10/22/22 20:00 Urine Glucose (UA) Norm (Normal) 10/22/22 20:00 Urine Ketones Negative (Negative) 10/22/22 20:00 Urine Blood Neg (Negative) 10/22/22 20:00 Urine Nitrate Negative (Negative) 10/22/22 20:00 Urine Bilirubin Neg (Negative) 10/22/22 20:00 Urine Urobilinogen Norm mg/dL (Negative) 10/22/22 20:00 Ur Leukocyte Esterase Trace (Negative) H 10/22/22 20:00 Urine RBC 0-4 /hpf (0-2) H 10/22/22 20:00 Urine WBC 5-10 /hpf (0-5) H 10/22/22 20:00 Ur Squamous Epith Cells 0-4 /hpf (0-5) H 10/22/22 20:00 Amorphous Sediment Not Reportable 10/22/22 20:00 Urine Bacteria Trace /hpf (NONE) 10/22/22 20:00 Vitals Last Vital Signs Temp 97.6 F 10/23/22 04:00 Pulse 73 10/23/22 04:00 Resp 17 10/23/22 04:00 BP 99/66 10/23/22 04:00 Pulse Ox 97 10/23/22 04:00 O2 Del Method 10/23/22 00:57 Discharge Plan Discharge Patient Disposition: Home Condition: Stable Prescriptions: Continued levothyroxine 25 mcg tablet 25 mcg PO DAILY Qty: 90 3RF Rx Instructions: Take one tablet by mouth daily. ropinirole 2 mg tablet See Rx Instructions .ROUTE .COMPLEX Qty: 180 2RF Dose Instruction: TAKE 1 TABLET BY MOUTH TWICE A DAY NEEDED FOR MUSCLE JERKING Rx Instructions: TAKE 1 TABLET BY MOUTH TWICE A DAY NEEDED FOR MUSCLE JERKING cholecalciferol (vitamin D3) 50 mcg (2,000 unit) capsule See Rx Instructions .ROUTE .COMPLEX Qty: 100 3RF Dose Instruction: TAKE 1 CAPSULE BY MOUTH EVERY DAY Rx Instructions: TAKE 1 CAPSULE BY MOUTH EVERY DAY Discharge Orders: Discharge Order (Routine); Ordered 10/23/22 Ordered By: Adal Mcknight Referrals: Nabil Goldstein MD [Primary Care Provider] - 10/29/22 12:30 pm Discharge Diet: Regular Discharge Activity: Resume usual activity and Increase activity as tolerated Patient Instructions: Transient Ischemic Attack (DC), Syncope (DC), Opioid Safety Activity Restrictions/Additional Instructions: You will need to follow-up with a neurologist at [place] for possible need of continuous video EEG. You will need a referral from a primary care provider regarding same. You should also be tested for sleep apnea. Please talk to your primary care provider regarding same. Discharge Attestations Time Spent in Discharge Care*: greater than 30 min Specific Discharge Activities: educating patient, discussing with pcp/other providers, discussing with case management specialist/social workers/dc planners, documenting/other paperwork and evaluating patient/reviewing data Status at Discharge: Cognitive status at discharge: cognitively intact, Behavioral status at discharge: cooperative, Functional status at discharge: independent ambulation, Overall status at discharge: patient is back to baseline Quality Metrics Clinical Quality Measures [ No reported AMI, CVA or VTE this stay] Coding Level of Care Code 76380 Diagnoses Transient neurological symptoms R29.818
[2022-10-23 10:46] VITALS: BP 120/76; PULSE 75; RESP 18; TEMP 36.8; O2SAT 98
--- NOTE | 2022-10-23 11:22 | PC.CHAP ---
Pastoral Care Encounter/Spiritual Assessment Type of Contact [] Declined supervisor industrial garment visit [] Patient/Family/Request visit [] Outpatient visit [] Follow-up visit [] Physician referral [] Code/Alert [x] Routine visit [] Staff referral [] Actively dying [] Patient sleeping [x] Family support [] [] Out of room [] Palliative care [] [] Receiving care in room [] Pre-surgical visit [] Trauma [] Long length of stay [] ICU visit [] Other: Relational/Emotional Strength [x] Patient feels connected with others/family/visitors/staff [] Distress [] Loneliness/isolation [] Abandonment Spirituality of Patient [x] Person of Mindi [] Attends Taoism of their Mindi [x] Believes in Prayer [] Reads Bible or Rastafarian materials [] There are Spiritual issues to be addressed Director Of Social Media Marketing Interventions [x] Prayer [] Active listening [] Non-anxious presence [] Spiritual/emotional support [] Crisis/trauma care [] Spiritual counseling [] Bereavement support [] Provided bereavement packet [x] Provided Bible/devotional materials [] Provided toy/stuffed animal, coloring book to patient or family member [] Provided Communion [] Anointing/Pennock [] Salvation [x] Completed spiritual assessment [] Other: Impact on Illness or Injury [] Angry [] Fearful [] Anxious [] Often cries [] Exhaustion [] Unable to work [] Unable to attend restorationist [] Unable to walk/stand [] Unable to read [] Unable to drive [] Unable to eat/drink [] Unable to sleep [] Unable to be with family [] Patient intubated [] Other: Summary Time spent with patient 10min
[2022-10-23 11:52] VITALS: BP 120/76; PULSE 75; RESP 18; TEMP 36.8; O2SAT 98
--- NOTE | 2022-10-23 11:52 | PC.NURSE ---
IV removed intact. Patient tolerated well. Patient is A&Ox3. Respirations even and non-labored on room air. Reviewed discharge instructions with patient and . Patient verbalized understanding including follow up appointments.
== END 2022-10-23 12:09 | disposition home or self-care (01) ==
LOC: ER 22:27 → MEDSURG 23:19
PROVIDERS: Nurse Practitioner Family; Admitting Provider Student in an Organized Health Care Education/Training Program; Emergency Provider Emergency Medicine; PCP Family Medicine; Visit Provider Student in an Organized Health Care Education/Training Program
DX: R29.818 Other symptoms and signs involving the nervous system (principal); E03.9 Hypothyroidism, unspecified; I65.23 Occlusion and stenosis of bilateral carotid arteries
CPT/HCPCS: 36415; 70450; 71045; 80053; 81001; 82330; 84439; 84443; 84484; 85025; 93005; 93880; 96360; 99285; G0378; J7030

== ENCOUNTER → 2023-03-01 08:44 | Outpatient (BNVA) | payer OTHER, SELFPAY | PROVIDERS: PCP Family Medicine; Referring Provider Family Medicine; Visit Provider Psychiatry & Neurology Neurology | DX: R55 Syncope and collapse (principal); R29.818 Other symptoms and signs involving the nervous system; R79.89 Other specified abnormal findings of blood chemistry; G25.81 Restless legs syndrome; E03.9 Hypothyroidism, unspecified; I63.9 Cerebral infarction, unspecified | CPT/HCPCS: 36415; 82306; 82607; 82746; 83090; 83735; 83921; 84439; 84443; 84480 ==

== ENCOUNTER 2023-03-17 07:19 | Outpatient (CLI) | payer OTHER, SELFPAY ==
--- NOTE | 2023-03-17 07:15 | MR_ITS ---
WS: [id number] MRI BRAIN WITH AND WITHOUT CONTRAST HISTORY: R55 - Syncope and collapse COMPARISON: 07/25/2008, CT head 10/22/2022 TECHNIQUE: Multiplanar imaging performed through the brain with MultiHance 16 ml's IV. No acute infarcts are seen. Cruz-white matter differentiation is well preserved. Mild small vessel is chemic type changes in the subcortical white matter, bilateral. Prominent perivascular space along th e inferior RIGHT basal ganglia. Similar to the prior study. No prior large territory infarct. No susceptibility artifacts or prior lacunar infarcts. Ventricles and extra-axial spaces are normal. Clivus and pituitary gland are normal. Visualized posterior fossa and brainstem are also normal. Very small venous angioma LEFT frontal lobe. 5 mm nodular enhancement along the posterior supraventri cular interhemispheric falx. Differential includes a tiny meningioma but more likely a tortuous vesse l. No enhancing intra-axial mass. Dural venous sinuses are normal. Paranasal sinuses: Marked bilateral mucoperiosteal thickening involving the maxillary and sphenoid si nuses. Significant abnormality in the RIGHT maxillary and sphenoid sinus. There is an air-fluid level with mucosal thickening. Mild mucoperiosteal thickening in the ethmoid air cells. Mastoid air cells: Normal. Calvarium and scalp: Normal. MR/MR head wo/w con [id number] IMPRESSION: 1. No acute infarct or mass. 2. Very mild small vessel ischemic disease. 3. Very minimal RIGHT frontal venous angioma. 4. Extensive paranasal sinus disease. Most significant changes involve the RIG HT maxillary and sphenoid sinuses.
[2023-03-17] MEDS: gadobenate dimeglumine 20 mL vial IV (08:28)
== END 2023-03-17 07:20 | disposition home or self-care (01) ==
LOC: RAD 07:23
PROVIDERS: PCP Family Medicine; Visit Provider Psychiatry & Neurology Neurology
DX: R55 Syncope and collapse (principal); R29.818 Other symptoms and signs involving the nervous system; R79.89 Other specified abnormal findings of blood chemistry; G25.81 Restless legs syndrome; I67.89 Other cerebrovascular disease; D18.02 Hemangioma of intracranial structures; J32.8 Other chronic sinusitis
CPT/HCPCS: 36415; 70553; 82306; 82607; 82746; 83090; 83735; 83921; 84439; 84443; 84480; A9577

== ENCOUNTER → 2023-03-18 15:02 | Outpatient (BNVA) | payer OTHER, SELFPAY | PROVIDERS: PCP Family Medicine; Visit Provider Internal Medicine | DX: E03.9 Hypothyroidism, unspecified (principal); R79.89 Other specified abnormal findings of blood chemistry | CPT/HCPCS: 36415; 82310; 83970; 86376; 86800 ==

== ENCOUNTER 2023-03-31 08:48 | Outpatient (CLI) | payer OTHER, SELFPAY ==
--- NOTE | 2023-03-31 09:11 | NM_ITS ---
WS: [email or web address] EXAMINATION: NM parathyroid [id number] ORDER DATE: 03/31/2023 9:11 AM COMPARISON: None HISTORY: E21.0 - Primary hyperparathyroidism TECHNIQUE: Parathyroid scintigraphy with 18.4 mCi technetium 99m sestamibi administered. AP and obliq ue views obtained with and without chin and suprasternal notch markers. Initial and 2 hour delayed im aging acquired. FINDINGS: Normal salivary gland uptake on the initial imaging. Relatively homogeneous thyroid gland uptake bila terally. Slightly decreased uptake along the LEFT inferior thyroid lobe. This can be further evaluate d with thyroid ultrasound. No significant retained activity on the delayed imaging to indicate parathyroid adenoma. No other carli picious findings. NM/NM parathyroid [id number] IMPRESSION: 1. Slightly decreased thyroid uptake along the LEFT inferior thyroid. This can be further evaluated with thyroid ultrasound. 2. No convincing evidence of parathyroid adenoma.
== END 2023-03-31 08:49 | disposition home or self-care (01) ==
LOC: RAD 08:49
PROVIDERS: PCP Family Medicine; Visit Provider Internal Medicine
DX: E21.0 Primary hyperparathyroidism (principal)
CPT/HCPCS: 78070; A9500

== ENCOUNTER 2023-04-16 10:56 | Outpatient (CLI) | payer OTHER, SELFPAY ==
--- NOTE | 2023-04-16 11:15 | US_ITS ---
WS: [id number] THYROID ULTRASOUND HISTORY: E04.1 - Nontoxic single thyroid nodule COMPARISON: None available. Right lobe: 1.4 cm x 1.3 cm x 3.7 cm (w x ap x l). Volume: 3.5 cm3. Normal size and echotexture. No significant are dominant nodules are present. Left lobe: 1.2 cm x 1.0 cm x 3.2 cm (w x ap x l). Volume: 2.0 cm3. Normal size and echotexture. No significant or dominant nodules are present. Isthmus: 0.3 cm. US/US thyroid [id number] IMPRESSION: Normal thyroid ultrasound.
== END 2023-04-16 10:57 | disposition home or self-care (01) ==
PROVIDERS: PCP Family Medicine; Visit Provider Internal Medicine
DX: E04.1 Nontoxic single thyroid nodule (principal)
CPT/HCPCS: 76536

== ENCOUNTER 2023-04-21 12:15 | Outpatient (CLI) | payer OTHER, SELFPAY ==
--- NOTE | 2023-04-21 12:30 | CT_ITS ---
WS: [email or web address] CT SINUSES TECHNIQUE: Noncontrast CT of the paranasal sinuses with coronal and sagittal reformatted images. CLINICAL INFORMATION: sinus congestion COMPARISON: None. DLP: 392.[address] scans at [facility] use at least one of these dose optimization techniques: automated e xposure control; mA and/or kV adjustment per patient size (includes targeted exams where dose is matc hed to clinical indication); or iterative reconstruction. FINDINGS: Right to left nasal septal deviation with a leftward directed spur. Nasal septal deviation measures 4 mm. Right belkis bullosa. Mild narrowing of the ostiomeatal units bilaterally with mild mucosal thic kening. Ostiomeatal units remain patent. Frontal sinuses are well aerated. Frontoethmoidal recesses a re patent. Maxillary sinuses are well aerated. Sphenoid sinuses are patent. Mucosal thickening along the sphenoid sinus ostia which remain patent. Frothy secretions within the right posterior ethmoid ai r cells. Trace mucosal thickening in the ethmoid air cells. Normal posterior nasopharynx. Normal para pharyngeal fat. IMPRESSION: 1. Mild right to left nasal septal deviation measuring 4.1 mm. 2. Right belkis bullosa. 3. Paranasal sinuses and mastoid air cells are well aerated. 4. Mild narrowing ostiomeatal units which remain patent. 5. Small amount of frothy secretions within the right posterior ethmoid air cells. 6. Mastoid air cells are well aerated.
== END 2023-04-21 12:16 | disposition home or self-care (01) ==
PROVIDERS: PCP Family Medicine; Visit Provider Otolaryngology
DX: R09.81 Nasal congestion (principal); J34.2 Deviated nasal septum; J34.89 Other specified disorders of nose and nasal sinuses
CPT/HCPCS: 70486

== ENCOUNTER 2023-05-12 20:00 | Outpatient (CLI) | payer OTHER, SELFPAY | END 2023-05-12 20:01 | disposition home or self-care (01) | LOC: SLEEP 05-13 05:30 | PROVIDERS: PCP Family Medicine; Visit Provider Psychiatry & Neurology Neurology | DX: G47.00 Insomnia, unspecified (principal); R29.818 Other symptoms and signs involving the nervous system; G25.81 Restless legs syndrome; R55 Syncope and collapse; R06.83 Snoring; R53.83 Other fatigue | CPT/HCPCS: 95810 ==

== ENCOUNTER 2023-08-24 13:07 | Outpatient (CLI) | payer OTHER, SELFPAY ==
--- NOTE | 2023-08-24 13:09 | MM_ITS ---
WS: [email or web address] VIEWS: MLO and CC views both breasts. 3D digital tomosynthesis is also included in this exam. Comparison made with prior exam of 12/29/2007, 01/08/2009, 01/20/2010, 01/26/2011, 02/22/2013, 02/23/2014, 10/11/2015, 07/08/2020, 04/07/2019,. Findings: There was no sign of mass, architectural distortion or suspicious calcification in either breast. Sta ble appearing nodular densities noted bilaterally. The breasts are heterogeneously dense which may ob scure small masses. Impression: MM/[place] [id number] BI-RADS: 2-Benign finding. FOLLOW-UP: 1 Year Follow-up This mammogram was also analyzed by the Computer Aided Detection System R2 Imag e [employer].
== END 2023-08-24 13:08 | disposition home or self-care (01) ==
LOC: RAD 13:07
PROVIDERS: PCP Family Medicine; Visit Provider Family Medicine
DX: Z12.31 Encounter for screening mammogram for malignant neoplasm of breast (principal)
CPT/HCPCS: 77063; 77067

== ENCOUNTER → 2024-03-28 14:09 | Outpatient (BNVA) | payer OTHER, SELFPAY | PROVIDERS: PCP Family Medicine; Visit Provider Family Medicine | DX: Z51.81 Encounter for therapeutic drug level monitoring (principal); E53.8 Deficiency of other specified B group vitamins; E03.9 Hypothyroidism, unspecified; E21.0 Primary hyperparathyroidism; E55.9 Vitamin D deficiency, unspecified | CPT/HCPCS: 80053; 82306; 82310; 82607; 83970; 84439; 84443; 84481; 85025 ==

== ENCOUNTER 2024-10-02 07:51 | Outpatient (CLI) | payer OTHER, SELFPAY ==
--- NOTE | 2024-10-02 07:54 | MM_ITS ---
WS: [id number] BILATERAL SCREENING DIGITAL TOMOSYNTHESIS MAMMOGRAM WITH CAD HISTORY: SCREENING COMPARISON: 08/24/2023, 07/08/2020, 04/07/2019 Bilateral CC and MLO views with tomosynthesis and synthetic mammography submitted. Computer aided det ection analyzed. Breast composition: The breasts are heterogeneously dense, which may obscure small masses. No suspici ous masses, microcalcifications or architectural distortion. MM/MM scr tomosynthesis [id number] IMPRESSION: BI-RADS: 2 - Benign FOLLOW UP: 1 Year Follow-up
== END 2024-10-02 07:52 | disposition home or self-care (01) ==
LOC: RAD 07:52
PROVIDERS: PCP Family Medicine; Visit Provider Family Medicine
DX: Z12.31 Encounter for screening mammogram for malignant neoplasm of breast (principal); R92.333 Mammographic heterogeneous density, bilateral breasts
CPT/HCPCS: 77063; 77067

== ENCOUNTER → 2025-06-29 12:55 | Outpatient (BNVA) | payer OTHER, SELFPAY | PROVIDERS: PCP Family Medicine; Visit Provider Family Medicine | DX: R30.0 Dysuria (principal) | CPT/HCPCS: 81000; 87077; 87086; 87184 ==